=== PATIENT | female | born 2000 | race African-American/Black ===

== ENCOUNTER 2024-04-12 17:15 | Emergency (ER) | payer BC, OTHER ==
[~2024-04-12] VITALS: Ht 172.7 cm; Wt 84.0 kg
[2024-04-12 17:46] VITALS: O2SAT 100
[2024-04-12] MEDS ORDERED: ACETAMINOPHEN 325MG TABLET PO ONE (18:15)
[2024-04-12] MEDS ORDERED: AMOX-494 MT (19:53)
[2024-04-12] MEDS ORDERED: DOXY100C5 MT (19:53)
[2024-04-12 20:00] VITALS: BP 121/69; PULSE 95; RESP 16; TEMP 36.83628; O2SAT 98
[2024-04-12] MEDS: ACETAMINOPHEN 325MG TABLET PO NR (20:00)
[2024-04-12 21:12] VITALS: TEMP 102
== END 2024-04-12 20:00 | disposition home or self-care (01) ==
LOC: ER 17:15
DX: J18.9 Pneumonia, unspecified organism (principal); Z20.822 Contact with and (suspected) exposure to COVID-19
CPT/HCPCS: 71046; 81025; 87420; 87426; 87804; 99284